=== PATIENT | female | born 1975 | race Caucasian/White ===

== ENCOUNTER 2017-09-06 02:19 | Emergency (ER) | payer BC, OTHER ==
[2017-09-06 02:25] VITALS: BP 131/76; PULSE 75; RESP 18; TEMP 98.8; O2SAT 96
--- NOTE | 2017-09-06 02:45 | EDPHY ---
H & P Stated Complaint: crushed r hand while at work, pain to r thumb HPI/ROS: HPI The patient presents with right thumb injury which occurred just prior to presentation while she was working at [employer]. She was moving pallets along a conveyor belt and her thumb got stuck between 2 of these. She had pain immediately which was achy in nature in the distal portion of her some. There is some swelling and discoloration which is now resolved after using an ice pack. The pain is achy in nature and worse when she moves her thumb.. REVIEW OF SYSTEMS Constitutional: No fever, no chills. Musculoskeletal: No back pain. Skin: No rashes. Neurological: No headache. PMHx: Hypertension, Chiari malformation Soc Hx: Works at [employer] General Appearance: Alert, no distress Eyes: Pupils equal and round no pallor or injection ENT, Mouth: Mucous membranes moist Respiratory: Breathing comfortably Neurological: A&O, moves all extremities Skin: Warm and dry, no rashes Musculoskeletal: Neck is supple non tender Extremities: Right thumb is tender to palpation overlying the distal phalanx, there is sensation intact to light touch, no discoloration, small abrasion to lateral surface, there is limited flexion at the interphalangeal joint secondary to pain, otherwise there is full range of motion Psychiatric: Patient is oriented X 3, there is no agitation Source: Patient Exam Limitations: No limitations - Personal History LMP (Females 10-55): 8-14 Days Ago Current Tetanus/Diphtheria Vaccine: Yes Current Tetanus Diphtheria and Acellular Pertussis (TDAP): Yes - Medical/Surgical History Hx Asthma: No Hx Chronic Respiratory Disease: No Hx Diabetes: No Hx Cardiac Disease: No Hx Renal Disease: No Hx Cirrhosis: No Hx Alcoholism: No Hx HIV/AIDS: No Hx Splenectomy or Spleen Trauma: No Other PMH: HTN, CHIARI MALFORMATION - Social History Smoking Status: Current every day smoker Constitutional: Initial Vital Signs Temperature (C) 37.1 C 09/06/17 02:22 Heart Rate 75 09/06/17 02:22 Respiratory Rate 18 09/06/17 02:22 Blood Pressure 131/76 H 09/06/17 02:22 O2 Sat (%) 96 09/06/17 02:22 O2 Delivery Mode Room Air Allergies/Adverse Reactions: No Known Allergies Allergy (Unverified 09/06/17 02:25) Home Medications: Medication Instructions Recorded Hydrocodone/Acetaminophen 1 each PO QID 09/06/17 [Hydrocodon-Acetaminophn 10-325] Lisinopril 10 mg PO 09/06/17 Medical Decision Making - Diagnostics Imaging Results: Right thumb x-ray demonstrates no fracture, no dislocation, no foreign body, interpreted by me, radiology interpretation is pending. Differential Diagnosis: This is a 42-year-old female who presents from her job with right thumb injury. Her thumb was crushed in between 2 pallets while working on a conveyor belt line. She is neurovascularly intact. X-ray was obtained showing no fracture, no dislocation, no foreign body. I feel she is likely suffering from contusion. I will place her in a thumb spica splint and give her follow up with Hand. She will likely follow up with the worker's Comp doctor. Differential diagnosis includes some sprain, thumb fracture, thumb dislocation. Departure - Departure Disposition: Home, Routine, Self-Care Clinical Impression: Injury of right thumb Qualifiers: Encounter type: initial encounter Qualified Code(s): S69.91XA - Unspecified injury of right wrist, hand and finger(s), initial encounter Condition: Good Instructions: Finger Sprain (ED) Additional Instructions: Please use plenty of ice. You can use ibuprofen 400 mg or acetaminophen 650 mg every 6 hours as needed for pain. Should elevate the thumb as well. Please follow up with the worker's Comp doctor or the hand specialist I have referred you to. Referrals: Frank Law MD [Medical Doctor] - As per Instructions
== END 2017-09-06 03:05 | disposition home or self-care (01) ==
DX: S69.91XA Unspecified injury of right wrist, hand and finger(s), initial encounter (principal); I10 Essential (primary) hypertension; F17.200 Nicotine dependence, unspecified, uncomplicated; W23.0XXA Caught, crushed, jammed, or pinched between moving objects, initial encounter; Y92.69 Other specified industrial and construction area as the place of occurrence of the external cause; Y99.0 Civilian activity done for income or pay; Y93.89 Activity, other specified

== ENCOUNTER 2018-08-02 22:34 | Emergency (ER) | payer BC, OTHER ==
[2018-08-02] MEDS ORDERED: ASPIRIN 81 MG CHEWABLE TAB PO ONE (22:53)
[2018-08-02 22:56] LABS: PLATELET COUNT 288 10^3/uL (150-400)
--- NOTE | 2018-08-02 22:56 | EDPHY ---
H & P Stated Complaint: CP since 5pm with tingling in L arm Time Seen by Provider: 08/02/18 22:43 HPI/ROS: CHIEF COMPLAINT: Chest pain HISTORY OF PRESENT ILLNESS: The patient is a 42-year-old female who comes to the emergency department complaining of epigastric chest pain as well as some tingling in her left arm and a feeling that her "face is on fire". The symptoms began around 5:00 p.m. Today and have gradually improved. She states that she is now relatively asymptomatic. She has had this happened several times before and has been worked up by Cardiology. She has had negative stress test and Holter monitors and negative troponins. She does not smoke. No recent travel. No leg swelling or pain. She does not take hormones. She does not have any pleuritic pain. No fevers. No recent illness. She did feel slightly nauseous initially. She lives in [place] and most of her test has been there. Her pain did not get worse with palpation or movement. Severity: Moderate Modifying factors: Did seem to worsen with exertion at work but now resolved. REVIEW OF SYSTEMS: Constitutional: denies: chills, fever, recent illness, recent injury EENTM: denies: blurred vision, double vision, nose congestion Respiratory: denies: cough, shortness of breath Cardiac: See HPI denies: irregular heart rate, lightheadedness, palpitations Gastrointestinal/Abdominal: denies: abdominal pain, diarrhea, nausea, vomiting, blood streaked stools Genitourinary: denies: dysuria, frequency, hematuria, pain Musculoskeletal: denies: joint pain, muscle pain Skin: denies: lesions, rash, jaundice, bruising Neurological: denies: headache, numbness, paresthesia, tingling, dizziness, weakness Hematologic/Lymphatic: denies: blood clots, easy bleeding, easy bruising Immunologic/allergic: denies: HIV/AIDS, transplant 10 systems reviewed and negative except as noted EXAM: GENERAL: Well-appearing, well-nourished and in no acute distress. HEAD: Atraumatic, normocephalic. EYES: Pupils equal round and reactive to light, extraocular movements intact, sclera anicteric, conjunctiva are normal. ENT: TMs normal, nares patent, oropharynx clear without exudates. Moist mucous membranes. NECK: Normal range of motion, supple without lymphadenopathy or JVD. LUNGS: Breath sounds clear to auscultation bilaterally and equal. No wheezes rales or rhonchi. HEART: Regular rate and rhythm without murmurs, rubs or gallops. ABDOMEN: Soft, nontender, normoactive bowel sounds. No guarding, no rebound. No masses appreciated. BACK: No CVA tenderness, no spinal tenderness, step-offs or deformities EXTREMITIES: Normal range of motion, no pitting or edema. No clubbing or cyanosis. NEUROLOGICAL: Cranial nerves II through XII grossly intact. Normal speech, normal gait. 5/5 strength, normal movement in all extremities, normal sensation , normal reflexes PSYCH: Normal mood, normal affect. SKIN: Warm, dry, normal turgor, no visible rashes or lesions. Source: Patient Exam Limitations: No limitations - Personal History LMP (Females 10-55): 22-28 Days Ago Current Tetanus/Diphtheria Vaccine: Yes Current Tetanus Diphtheria and Acellular Pertussis (TDAP): Yes - Medical/Surgical History Hx Asthma: No Hx Chronic Respiratory Disease: No Hx Diabetes: No Hx Cardiac Disease: No Hx Renal Disease: No Hx Cirrhosis: No Hx Alcoholism: No Hx HIV/AIDS: No Hx Splenectomy or Spleen Trauma: No Other PMH: Cholecystectomy, HTN, CHIARI MALFORMATION, ?Lupus - Family History Significant Family History: No pertinent family hx - Social History Smoking Status: Current every day smoker Alcohol Use: Sober Drug Use: None Constitutional: Initial Vital Signs Temperature (C) 37.4 C 08/02/18 22:35 Heart Rate 107 H 08/02/18 22:35 Respiratory Rate 20 08/02/18 22:35 Blood Pressure 126/98 H 08/02/18 22:35 O2 Sat (%) 98 08/02/18 22:35 O2 Delivery Mode Room Air O2 (L/minute) 2 Allergies/Adverse Reactions: No Known Allergies Allergy (Unverified 09/06/17 02:25) Home Medications: Medication Instructions Recorded Hydrocodone/Acetaminophen 1 each PO QID 09/06/17 [Hydrocodon-Acetaminophn 10-325] Lisinopril 10 mg PO 09/06/17 Famotidine [Pepcid] 40 mg PO HS #30 tablet 08/02/18 Medical Decision Making - Diagnostics EKG Interpretation: An EKG obtained and was read and documented in trace view. Please see trace view for full reading and report. Sinus rhythm, no acute ischemic changes Imaging Results: Imaging Impressions Chest X-Ray 08/02/18 22:48 Impression: No acute findings in the chest. Imaging: Discussed imaging studies w/ call taker Radiologist ED Course/Re-evaluation: 11:30 p.m. the patient's lab work is reassuring. She is asymptomatic. Troponin is negative after 5 hr of symptoms. We discussed options. She is eager to go home. She understands the risks involved. I will have her start on an acid to see if this helps. Differential Diagnosis: Partial list of the Differential diagnosis considered include but were not limited to; acute coronary disease, arrhythmia, anxiety, GERD, esophageal spasm and although unlikely based on the history and physical exam, I also considered , perforation, obstruction, pancreatitis, biliary disease. I discussed these differential diagnoses and the plan with the patient as well as the usual and expected course. The patient understands that the diagnosis is provisional and that in medicine we are not always correct and that further workup is often warranted. Usual and customary warnings were given. All of the patient's questions were answered. The patient was instructed to return to the emergency department should the symptoms at all worsen or return, otherwise to followup with the physician as we discussed. - Data Points Laboratory Results: Laboratory Results 08/02/18 22:45 08/02/18 22:45 08/02/18 08/02/18 08/02/18 22:49 22:45 22:45 WBC RBC Hgb Hct MCV MCH MCHC RDW Plt Count MPV Neut % (Auto) Lymph % (Auto) Thomas % (Auto) Eos % (Auto) Baso % (Auto) Nucleat RBC Rel Count Absolute Neuts (auto) Absolute Lymphs (auto) Absolute Monos (auto) Absolute Eos (auto) Absolute Basos (auto) Absolute Nucleated RBC Immature Gran % Immature Gran # PT INR APTT D-Dimer Sodium 134 mEq/L L mEq/L (135-145) Potassium 3.8 mEq/L mEq/L (3.3-5.0) Chloride 99 mEq/L mEq/L (97-110) Carbon Dioxide 26 mEq/l mEq/l (22-31) Anion Gap 9 mEq/L mEq/L (6-14) BUN 9 mg/dL mg/dL (7-23) Creatinine 0.6 mg/dL mg/dL (0.6-1.0) Estimated GFR > 60 Glucose 127 mg/dL H mg/dL (70-100) Calcium 9.4 mg/dL mg/dL (8.5-10.4) Total Bilirubin 0.5 mg/dL mg/dL (0.1-1.4) Conjugated Bilirubin 0.2 mg/dL mg/dL (0.0-0.5) Unconjugated Bilirubin 0.3 mg/dL mg/dL (0.0-1.1) AST 28 IU/L IU/L (14-46) ALT 28 IU/L IU/L (9-52) Alkaline Phosphatase 64 IU/L IU/L (38-126) POC Troponin I 0.02 ng/mL ng/mL (0.00-0.08) Total Protein 8.0 g/dL g/dL (6.3-8.2) Albumin 4.5 g/dL g/dL (3.5-5.0) Lipase 29 IU/L IU/L (23-300) Beta HCG, Qual NEGATIVE 08/02/18 08/02/18 22:45 22:45 WBC 10.12 10^3/uL H 10^3/uL (3.80-9.50) RBC 5.15 10^6/uL 10^6/uL (4.18-5.33) Hgb 14.7 g/dL g/dL (12.6-16.3) Hct 45.1 % % (38.0-47.0) MCV 87.6 fL fL (81.5-99.8) MCH 28.5 pg pg (27.9-34.1) MCHC 32.6 g/dL g/dL (32.4-36.7) RDW 12.3 % % (11.5-15.2) Plt Count 288 10^3/uL 10^3/uL (150-400) MPV 9.8 fL fL (8.7-11.7) Neut % (Auto) 69.4 % % (39.3-74.2) Lymph % (Auto) 24.7 % % (15.0-45.0) Thomas % (Auto) 4.7 % % (4.5-13.0) Eos % (Auto) 0.4 % L % (0.6-7.6) Baso % (Auto) 0.4 % % (0.3-1.7) Nucleat RBC Rel Count 0.0 % % (0.0-0.2) Absolute Neuts (auto) 7.02 10^3/uL H 10^3/uL (1.70-6.50) Absolute Lymphs (auto) 2.50 10^3/uL 10^3/uL (1.00-3.00) Absolute Monos (auto) 0.48 10^3/uL 10^3/uL (0.30-0.80) Absolute Eos (auto) 0.04 10^3/uL 10^3/uL (0.03-0.40) Absolute Basos (auto) 0.04 10^3/uL 10^3/uL (0.02-0.10) Absolute Nucleated RBC 0.00 10^3/uL 10^3/uL (0-0.01) Immature Gran % 0.4 % % (0.0-1.1) Immature Gran # 0.04 10^3/uL 10^3/uL (0.00-0.10) PT 12.9 SEC SEC (12.0-15.0) INR 0.95 (0.83-1.16) APTT 26.2 SEC SEC (23.0-38.0) D-Dimer 0.30 ug/mLFEU ug/mLFEU (0.00-0.50) Sodium Potassium Chloride Carbon Dioxide Anion Gap BUN Creatinine Estimated GFR Glucose Calcium Total Bilirubin Conjugated Bilirubin Unconjugated Bilirubin AST ALT Alkaline Phosphatase POC Troponin I Total Protein Albumin Lipase Beta HCG, Qual Medications Given: Discontinued Medications Aspirin (Aspirin) 324 mg PO EDNOW ONE Stop: 08/02/18 22:54 Last Admin: 08/02/18 23:03 Dose: 324 mg Point of Care Test Results: Chemistry 08/02/18 22:49 POC Troponin I 0.02 ng/mL ng/mL (0.00-0.08) Departure - Departure Disposition: Home, Routine, Self-Care Clinical Impression: Chest pain Qualifiers: Chest pain type: unspecified Qualified Code(s): R07.9 - Chest pain, unspecified Condition: Fair Instructions: Chest Pain (ED) Referrals: Alex Flores [Primary Care Provider] - 2-3 days, call for appt. Prescriptions: Famotidine [Pepcid] 40 mg PO HS #30 tablet
--- NOTE | 2018-08-02 23:07 | CPEKG ---
Test Reason : OPEN Blood Pressure : / mmHG Vent. Rate : 083 BPM Atrial Rate : 082 BPM P-R Int : 132 ms QRS Dur : 093 ms QT Int : 352 ms P-R-T Axes : 032 080 028 degrees QTc Int : 414 ms Sinus rhythm Confirmed by Delgado Vargas ([id number]) on 08/02/2018 11:07:15 PM Referred By: Confirmed By:Delgado Vargas
[2018-08-02 23:13] LABS: INR 0.95 (0.83-1.16); PROTIME(PATIENT) 12.9 SEC (12.0-15.0)
[2018-08-02 23:30] VITALS: BP 125/78
== END 2018-08-02 23:31 | disposition home or self-care (01) ==
DX: R07.9 Chest pain, unspecified (principal); R20.2 Paresthesia of skin; I10 Essential (primary) hypertension; M32.9 Systemic lupus erythematosus, unspecified; Z90.6 Acquired absence of other parts of urinary tract; F17.200 Nicotine dependence, unspecified, uncomplicated
CPT/HCPCS: 84484-PO